=== PATIENT | female | born 1945 | race Caucasian/White ===

== ENCOUNTER 2021-02-23 07:06 | Day surgery (SDC) | payer MEDICARE ==
[~2021-02-23] VITALS: Ht 162.6 cm; Wt 105.1 kg
--- NOTE | ~2021-02-23 | HEMODYNAMI ---
PATIENT:SANTI VALENCIA MEDICAL RECORD: [id number] : 41 LOCATION:D.CAT ADMISSION DATE: 02/23/21 Generatedon:110:55 Patient name: SANTI VALENCIA Patient #: [id number] SSN: [id number] : 1945 Date of study: 02/23/2021 Page: Of Hemodynamic Procedure Report Patient Data Patient Demographics Procedure consent was obtained First Name: SANTI Gender: Female Last Name: ERIK : 1945 Middle Initial: S Age: 76 year(s) Patient #: [id number] Race: SSN: [id number] Additional ID: [id number] Contact details [address]: [address] [place] [address] State: [place] City: [place] Zip code: [address] Past Medical History Allergies Allergen Reaction Date Comments Reported Other allergy 02/23/2021 SULFA, PCN, CODEINE, ASPIRIN, DEMEROL, IODINE, LANOLIN, LATEX Admission Admission Data Admission Date: 02/23/2021 Admission Time: 7:06 Arrival Date: 02/23/2021 Arrival Time: 0:00 Admit Source: Other Insurance Payor: Medicare [facility] #: [id number] Lab Results Lab Result Date: 02/23/2021 Lab Result Time: 0:00 Biochemistry Name Units Result Min Max BUN mg/dl 28 --(----)-* 7 18 Creatinine mg/dl 1.4 --(----)*- 0.6 1.3 eGFR ml/min 38 *-(----)-- 90 120 NONAFRICAN CBC Name Units Result Min Max Hematocrit % 41.9 -*(----)-- 42 54 Hemoglobin g/dl 13.7 --(*---)-- 13.5 17.5 Procedure Procedure Types Cath Procedure Diagnostic Procedure Right Heart Right Heart Cath Sedation Charges Moderate Sedation 10-24 minutes Procedure Description Procedure Date Procedure Date: 02/23/2021 Procedure Start Time: 10:37 Procedure End Time: 10:54 Procedure Staff Name Function Giovanny Robison MD Performing Physician Chantelle Lanier RT Monitor Pricila Mireles RT Scrub Sumit Peñaloza RN Nurse Procedure Data Cath Procedure Fluoroscopy Diagnostic fluoroscopy Total fluoroscopy Time: 2.9 time: 2.9 min min Diagnostic fluoroscopy Total fluoroscopy dose: 161 dose: 161 mGy mGy Contrast Material Contrast Material Type Amount (ml) Isovue 370 0 Entry Location Entry Primary Successful Side Size Upsize Upsize Entry Closure Succes sful Closure Location (Fr) 1 (Fr) 2 (Fr) Remarks Device Remarks Femoral Left 7 Fr Exoseal vein Short Estimated blood loss: 5 ml Diagnostic catheters Device Type Used For End Catheter Placement SWAN 7Fr Thermodilution Procedure cather (131F7P) Procedure Complications No complications Procedure Medications Medication Administration Route Dosage 0.9% NaCl I.V. 100 ml/hr Oxygen etCO2 Nasal cannula 2 l/min Heparin Flush Bag added to field 2 bags (1000units/500ml NS) Lidocaine 2% added to field 20 Versed I.V. 1 mg Fentanyl I.V. 50 mcg Versed I.V. 1 mg Hemodynamics Rest HGB: 13.7 (g/dl) Heart Rate: 66 (bpm) Pressure Samples Time Site Value (mmHg) Purpose Heart Use Rate(bpm) 10:42 PA 61/43(50) Snapshot 60 10:44 PCW 54/50(46) Snapshot 61 10:45 RV 71/33,39 Snapshot 83 10:45 RA 39/37(36) Snapshot 51 Snapshots Pre Cath Intra NCS Post Cath Vital Signs Time Heart Resp SPO2 etCO2 NIBP (mmHg) Rhythm Pain Sedation Rate (ipm) (%) (mmHg) Status Level (bpm) 10:32:32 62 16 94 37.1 148/80(121) NSR 0 (11) 10(A) , No pain 10:37:04 63 15 95 37.9 161/79(122) NSR 0 (11) 10(A) , No pain 10:41:34 50 13 94 27.3 154/78(113) NSR 0 (11) 10(A) , No pain 10:46:07 61 13 94 17.4 156/82(127) NSR 0 (11) 9(A) , No pain 10:50:35 59 14 95 38.6 154/80(117) NSR 0 (11) 9(A) , No pain Medications Time Medication Route Dose Verified Delivered Reason Notes Eff ectiveness by by 10:29:34 0.9% NaCl I.V. 100 Sumit Sumit Per ml/hr Jh Peñaloza physician RN RN 10:29:42 Oxygen etCO2 2 Sumit Sumit Per Nasal l/min Jh Peñaloza physician cannula RN RN 10:29:53 Heparin Flush added 2 Sumit Sumit used for Bag to bags Lorigan Lorsigifredo procedure (1000units/500ml field RN RN NS) 10:30:01 Lidocaine 2% added 20ml Sumit Sumit for local to vial Lorigan Lorigan anesthetic field RN RN 10:30:13 Versed I.V. 1 mg Sumit Sumit for Lorigan Lorigan sedation RN RN 10:30:22 Fentanyl I.V. 50 Sumit Sumit for mcg Lorigan Lorigan sedation RN RN 10:38:34 Versed I.V. 1 mg Sumit Sumit for Lorigan Lorigan sedation RN fibre technologist Log Time Note 9:33:12 Diagnostic Cath Status : Elective 9:33:40 Procedure Status Elective Heart Cath (OP). 9:33:43 Pricila Mireles RT(R) sent for patient. Start room use. 9:33:44 Time tracking: Regular hours (M-F 7:00 - 5:00) 9:33:48 Plan of Care:Hemodynamics will remain stable., Cardiac rhythm will remain stable., Comfort level will be maintained., Respiratory function will remain adequate., Patient/ family verbilizes understanding of procedure., Procedure tolerated without complication., Recovers from procedure without complications.. 9:58:22 Admit Source: Other 10:00:24 Arrival Date: 02/23/2021 12:00:00 AM 10:00:27 Insurance Payor : Medicare 10:00:52 Informed consent obtained and on chart 10:01:00 Patient received from Pre/Post Procedure Room to CCL 2 Alert and oriented. Tansferred to table in Supine position. 10:01:01 Warm blankets applied, and karyn hugger turned on for patient comfort. 10:01:01 Correct patient and procedure confirmed by team. 10:01:02 ECG and BP/O2 sat monitors applied to patient. 10:01:09 H&P Date Dictated: 02/02/2021 Within 30 days and on chart.. 10:01:09 Pre-procedure instructions explained to patient. 10:01:10 Pre-op teaching completed and patient verbalized understanding. 10:01:11 Family unavailable. 10:01:14 Patient NPO since Breakfast. 10:01:58 Patient allergic to Other allergySULFA, PCN, CODEINE, ASPIRIN, DEMEROL, IODINE, LANOLIN, LATEX 10:02:20 Lab Result : Hemoglobin 13.7 g/dl 10:02:20 Lab Result : eGFR NONAFRICAN 38 ml/min 10:02:20 Lab Result : BUN 28 mg/dl 10:02:20 Lab Result : Creatinine 1.4 mg/dl 10:02:20 Lab Result : Hematocrit 41.9 % 10:03:06 Is the patient allergic to Iodine/contrast media? Yes. 10:03:07 Was the patient premedicated? Yes 10:03:10 Is patient on blood thinner?No 10:03:11 Patient diabetic? No. 10:03:13 If diabetic: On Metformin? N/A 10:03:18 Patient not . Patient is over age 55. 10:03:18 ----Pre-sedation anethsthesia assessment.---- 10:03:23 Previous problem with sedation/anesthesia? Yes POST PROCEDURE PNEUMO 10:03:29 Lab results completed and on chart. 10:03:31 Stress Test: no; N/A ? 10:03:32 Alarms reviewed by R. N. 10:03:32 Sharps counted by scrub and verified by R.N. 10:05:06 ACC Patient presents with Stable Angina CCS Anginal Class 2--Slight limitation of ordinary activity. 10:12:53 Snore? Yes 10:13:12 Sleep apnea? Yes 10:13:13 Deviated septum? No 10:13:15 Opens mouth fully? Yes 10:13:16 Sticks out tongue? Yes 10:14:18 Airway obstruction? No ? 10:14:21 Dentures? No ? 10:14:25 Patient pain scale 0/10 ?. 10:14:31 IV patent on arrival in left antecubital with 0.9% NaCl at O. 10:14:50 Right groin area was prepped with chlora-prep and draped in sterile fashion 10:15:02 Use device set Femoral Dx 10:15:04 ACIST Syringe ([id number]) opened to sterile field. 10:15:05 Bag Decanter (2002S) opened to sterile field. 10:15:06 Medline Cath Pack ([id number]) opened to sterile field. 10:16:04 SHEATH 7FR Ulmer ([id number]) opened to sterile field. 10:28:25 Vital chart was started 10::44 Rhythm: atrial fibrillation 10::48 Baseline sample Acquired. 10::54 Full Disclosure recording started 10:29:03 --------ALL STOP TIME OUT------ 10:29:04 Final Timeout: patient, procedure, and site verified with staff and physician. All members of the team are in agreement. 10:29:12 Left groin site verified by team. 10:29:25 Fire Safety Assessment: A--An alcohol-based skin anteseptic being used preoperatively., C--Open oxygen or nitrous oxide is being used., D--An ESU, laser, or fiber-optic light is being used. 10:29:29 Physical assessment completed. ASA score P 2 - A patient with mild systemic disease as per Giovanny Robison MD. 10:29:34 0.9% NaCl 100 ml/hr I.V. was administered by Sumit Peñaloza RN; Per physician; Verbal order read back and verified. 10:29:35 3b) 30-44 Moderately reduced kidney function. 10:29:38 Maximum allowable contrast dose (3.7 X eGFR X 0.75)104 ml. 10:29:42 Oxygen 2 l/min etCO2 Nasal cannula was administered by Sumit Peñaloza RN; Per physician; Verbal order read back and verified. 10:29:42 Sedation plan: IV Moderate Sedation Medication:Versed, Fentanyl 10:29:53 Heparin Flush Bag (1000units/500ml NS) 2 bags added to field was administered by Sumit Peñaloza RN; used for procedure; Verbal order read back and verified. 10:30:01 Lidocaine 2% 20ml vial added to field was administered by Sumit Peñaloza RN; for local anesthetic; Verbal order read back and verified. 10:30:13 Versed 1 mg I.V. was administered by Sumit Peñaloza RN; for sedation; Verbal order read back and verified. 10:30:22 Fentanyl 50 mcg I.V. was administered by Sumit Peñaloza RN; for sedation; Verbal order read back and verified. 10:34:33 Procedure started. 10:37:35 Local anesthetic to left femerol artery with Lidocaine 2% by Giovanny Robison MD.INITIAL ACCESS ONLY 10:38:34 Versed 1 mg I.V. was administered by Sumit Peñaloza RN; for sedation; Verbal order read back and verified. 10:40:25 Right Heart 10:40:32 A 7 Fr Short sheath was inserted into the Left Femoral vein 10:40:34 A SWAN 7Fr Thermodilution cather (131F7P) was advanced over the wire and used for Procedure. 10:40:46 Mouthcard-Kathy "C" tip catheter inserted 10:41:21 DIAGNOSTIC WIRE .025 150cm J ([id number]) opened to sterile field. 10:41:47 EMERALD Guide Wire (637-888) opened to sterile field. 10:46:31 Right heart pressures obtained. 10:46:32 Mouthcard-Kathy removed. 10:49:28 EXOSEAL 7Fr (EX700) opened to sterile field. 10:49:38 Sheath removed intact; hemostasis achieved with Exoseal to the Left Femoral vein. 10:50:05 Procedure ended.(Physican Out) 10:50:24 Fluoroscopy time 02.90 minutes. 10:50:30 Fluoroscopy dose: 161 mGy 10:50:30 Flurop Dose total: 161 10:51:22 Dose Area Product 23274 mGy/cm. 10:51:34 Contrast amount:Isovue 370 0ml. 10:51:36 Maximum allowable dose exceeded? No. 10:51:37 Sharps counted by scrub and verified by R.N. 10:51:42 Post-op/insertion site Left Femoral vein dressed using a 4 x 4 and Tegaderm. 10:51:51 Post left femoral vein:stable, soft, clean and dry 10:52:16 Post Procedure Pulses reassessed and unchanged 10:52:21 Post-procedure physical assessment completed. ASA score P 2 - A patient with mild systemic disease as per Giovanny Robison MD. 10:52:24 Post procedure rhythm: unchanged. 10:52:31 Estimated blood loss: 5 ml 10:52:33 Post procedure instruction explained to patient.Patient verbalizes understanding. 10:52:33 Patient needs reinforcement of post procedure teaching. 10:53:34 Procedure type changed to Cath procedure, Diagnostic procedure, Right Heart, Right Heart Cath, Sedation Charges, Moderate Sedation 10-24 minutes 10:53:46 Procedure and supply charges have been captured, reviewed, submitted and are correct. 10:53:49 Procedure Complication : No complications 10:53:52 Vital chart was stopped 10:54:00 RHC Findings: PHTN: see procedure notes for sats and pressures 10:54:06 Operative report dictated upon procedure completion. 10:54:07 See physician's report for complete and final results. 10:54:10 Report given to Pre/Post Procedure Room. 10:54:12 Patient transfered to Pre/Post Procedure Room with Stretcher. 10:54:14 Procedure ended. 10:54:14 Full Disclosure recording stopped 10:54:21 End room use (Document Last) 10:54:33 End room use (Document Last) 10:55:09 End room use (Document Last) Device Usage Item Name Manufacture Quantity Catalog Hospital Part Current Minima l Lot# / Number Charge Number Stock Stock Serial# Code ACIST Syringe Acist 1 [id number] 042147 232857 20 ([id number]) [employer] Bag Decanter Microtek 1 [id number] 33686 185199 5 () [employer] Inc. Medline Cath Medline 1 [id number] 056945 39692 086441 5 Pack ([id number]) SHEATH 7FR Terumo 1 QLT741 987717 189075 952327 5 Ulmer (ORI114) SWAN 7Fr Wood 1 131F7P 856975 70710 244079 3 Thermodilution Lifesciences cather (131F7P) EMERALD Guide Cardinal 1 654-501 032000 822537 556907 5 Wire (989-351) Health DIAGNOSTIC [place] 1 903933 303142 208332 220573 2 WIRE .025 150cm J ([id number]) EXOSEAL 7Fr Cardinal 1 EX700 955197 193667 218294 5 (EX700) Health Signature Audit [place] Stage Time Signature Unsigned Intra-Procedure 02/23/2021 Chantelle Lanier 10:54:34 AM RT(R) Intra-Procedure 02/23/2021 Sumit 10:55:10 AM Lorigan RN Intra-Procedure 02/23/2021 Giovanny Robison MD 10:55:23 AM Signatures Performing Physician : Signature : Giovanny Robison MD Date : Time : Monitor : Chantelle Lanier Signature : RT Date : Time : Nurse : Sumit Lorigan Signature : RN Date : Time : [address] [place] [address]
[~2021-02-23 07:06] MED LIST: BUMETANIDE0.5 MG PO; BUMEX 1 MG TAB1 MG PO; CENTRUM COMPLE1 EACH PO; DIOVAN160 MG PO; METOPROLOL TAR100 M1; METOPROLOL TAR100 M1 PO; NITROSTAT0.4 MG SL; PLAVIX75 MG PO; POTASSIUM CHLO10 ME1; SYNTHROID75 MCG PO; TAZTIA XT360 MG PO
[2021-02-23] MEDS ORDERED: ISOSORBIDE MONO60 M1 PO (07:47)
[2021-02-23] MEDS ORDERED: COZAAR50 MG PO (07:49)
[2021-02-23] MEDS ORDERED: K-TAB10 MEQ PO (07:50)
[2021-02-23] MEDS ORDERED: TAZTIA XT360 MG PO (07:51)
--- NOTE | 2021-02-23 08:03 | NUR ---
NOTIFIED DR ROACH OF PT EATING LIGHT BREAKFAST. WILL MOVE PT TO LAST PT AND ORDERS RECEIVED FOR REGLAN.
[2021-02-23 08:05] VITALS: BP 218/95; Ht 162.6 cm; Wt 105.1 kg
[2021-02-23 08:16] LABS: BASOPHILS 0.3 % (0-2); EOSINOPHILS 0 % (0-7); HEMATOCRIT 41.9 % (36.0-48.0); HEMOGLOBIN 13.7 g/dL (12-16); IMMATURE GRANULOCYTES 0.1 % (0-5); LYMPHOCYTE ABS# 0.76 10x3/uL (1.18-3.74); LYMPHOCYTES 11.3 % (15-50); MCHC 32.7 g/dL (31.0-37.0); MCV 91.9 fL (80.0-100.0); MEAN PLATELET VOLUME 11.1 fL (7.4-10.4); MONOCYTES 1.6 % (2-11); NEUTROPHIL ABS# 5.82 10x3/uL (1.56-6.13); NEUTROPHILS 86.7 % (40-80); PLATELET COUNT 222 10x3/uL (130-400); RBC 4.56 10x6/uL (4.00-5.40); RDW 14.1 % (11.5-14.5); WBC 6.7 10x3/uL (4.8-10.8)
[2021-02-23 08:26] LABS: ANION GAP 15.4 mmol/L (8-16); CARBON DIOXIDE 25.5 mmol/L (21.0-32.0); CREATININE - SERUM 1.4 mg/dL (0.6-1.3); POTASSIUM - SERUM 3.9 mmol/L (3.5-5.1)
--- NOTE | 2021-02-23 11:00 | NUR ---
PT ARRIVED BY STRETCHER. PLACED ON MONITORS. ASSESSMENT COMPLETED. VSS AT THIS TIME. CALL LIGHT WITHIN REACH.
--- NOTE | 2021-02-23 11:15 | NUR ---
PT RESTING COMFORTABLY. LEFT GROIN DRESSING C/D/I. NO S/S OF HEMATOMA NOTED. LEFT PEDAL PULSE PALPABLE. DENIES NAUSEA/PAIN.
--- NOTE | 2021-02-23 11:45 | NUR ---
LEFT GROIN DRESSING C/D/I. NO S/S OF HEMATOMA NOTED. LEFT PEDAL PULSE PALPABLE. PT RESTING COMFORTABLY AT THIS TIME. DENIES NAUSEA/PAIN.
--- NOTE | 2021-02-23 12:00 | NUR ---
LEFT GROIN DRESSING C/D/I. NO S/S OF HEMATOMA NOTED. CALL LIGHT WITHIN REACH. HEAD OF BED INC TO 30 DEGREES. TOLERATED WELL. SET UP WITH SANDWICH TRAY AND DRINK. DENIES NAUSEA/PAIN. VSS AT THIS TIME.
--- NOTE | 2021-02-23 12:47 | NUR ---
LEFT GROIN DRESSING C/D/I. NO S/S OF HEMATOMA NOTED. PIV D/C'D WITH CATH TIP INTACT. TOLERATED WELL. PT INSTRUCTED TO GET UP AND DRESSED AT THIS TIME. NO ASSISTANCE NEEDED. CALL LIGHT WITHIN REACH.
--- NOTE | 2021-02-23 12:55 | NUR ---
DISCUSSED DISCHARGE INSTRUCTIONS WITH PT. SHE VOICED UNDERSTANDING. PT AMBULATED TO RESTROOM. VOIDED WITHOUT DIFFICULTY. STEADY GAIT NOTED.
--- NOTE | 2021-02-23 13:05 | NUR ---
PT TAKEN OUT TO VEHICLE BY WHEELCHAIR. NO S/S OF DISTRESS NOTED. ALL BELONGINGS AND PAPERWORK IN HAND.
== END 2021-02-23 13:05 | disposition home or self-care (01) ==
LOC: D.CATH 07:06
PROVIDERS: ATTEND Internal Medicine Cardiovascular Disease
DX: I27.20 Pulmonary hypertension, unspecified (principal); R06.00 Dyspnea, unspecified; I31.3 Pericardial effusion (noninflammatory); I10 Essential (primary) hypertension; I48.91 Unspecified atrial fibrillation; E78.5 Hyperlipidemia, unspecified; I25.118 Atherosclerotic heart disease of native coronary artery with other forms of angina pectoris; I34.8 Other nonrheumatic mitral valve disorders

== ENCOUNTER → 2021-04-27 10:14 | Outpatient (CLI) | payer MEDICARE ==
[2021-02-23 08:05] VITALS: BMI 39.7
[~2021-04-27 10:14] MED LIST changes: +COZAAR50 MG PO; +ISOSORBIDE MONO60 M1 PO; +K-TAB10 MEQ PO
== END | disposition home or self-care (01) ==
LOC: D.CT 10:14
PROVIDERS: ATTEND Family Medicine
DX: J90 Pleural effusion, not elsewhere classified (principal)